=== PATIENT | female | born 1970 | race Two or more races ===

== ENCOUNTER 2019-10-05 22:42 | Emergency (ER) | payer SELFPAY ==
[~2019-10-05] VITALS: Ht 154.9 cm; Wt 77.6 kg
[2019-10-06] MEDS ORDERED: BACLOFEN 10 MG TAB PO ONE (02:00)
[2019-10-06] MEDS ORDERED: ACETAMINOPHEN/CODEINE#3 (300/30mg) TAB PO ONE (02:00)
[2019-10-06] MEDS ORDERED: HYDROcodone-ACET 7.5/325MG TAB PO ONE (03:00)
[2019-10-06 03:18] VITALS: BP 104/51
== END 2019-10-06 03:20 | disposition home or self-care (01) ==
LOC: ER 22:45
DX: M62.838 Other muscle spasm (principal); Z88.6 Allergy status to analgesic agent; W19.XXXA Unspecified fall, initial encounter; Y93.89 Activity, other specified; Y99.8 Other external cause status; Y92.89 Other specified places as the place of occurrence of the external cause
CPT/HCPCS: 70450; 72125